=== PATIENT | female | born 1975 | race Caucasian/White ===

== ENCOUNTER → 2023-06-29 16:58 | Outpatient (REF) | payer BC, SELFPAY | LOC: RAD 16:58 | PROVIDERS: ATTENDING PHYSICIAN Obstetrics & Gynecology Gynecology; FAMILY PHYSICIAN Physician Assistant Medical | DX: N83.291 Other ovarian cyst, right side (principal) | CPT/HCPCS: 76830; 76856 ==

== ENCOUNTER → 2024-04-16 09:21 | Outpatient (REF) | payer BC, SELFPAY | LOC: WDC 09:21 | PROVIDERS: ATTENDING PHYSICIAN Physician Assistant Medical | DX: Z12.31 Encounter for screening mammogram for malignant neoplasm of breast (principal) | CPT/HCPCS: 77063; 77067 ==